=== PATIENT | female | born 1985 | race Caucasian/White ===

== ENCOUNTER 2018-12-03 08:43 | Emergency (ER) | payer BC ==
[~2018-12-03] VITALS: Ht 160 cm; Wt 57.7 kg
[2018-12-03 08:48] VITALS: Ht 160 cm; Wt 57.7 kg
[2018-12-03 10:40] VITALS: BP 125/80
== END 2018-12-03 10:40 | disposition home or self-care (01) ==
LOC: ED 08:43
DX: B02.9 Zoster without complications (principal); Z88.2 Allergy status to sulfonamides; Z88.1 Allergy status to other antibiotic agents; Z98.82 Breast implant status